=== PATIENT | female | born 1950 | race African-American/Black ===

== ENCOUNTER → 2021-08-27 | Outpatient (CLI) | payer MEDICARE ==
[~2021-08-27] MED LIST: ATORVASTATIN CA40 MG PO; FENOFIBRATE67 MG PO; LOSARTAN POTASS25 MG PO; METOPROLOL TART50 MG PO; NOVOLIN 70100 UNITS/ SQ
== END ==
LOC: MAMMO 09:35
PROVIDERS: ATTEND Internal Medicine
DX: Z12.31 Encounter for screening mammogram for malignant neoplasm of breast (principal)
CPT/HCPCS: 77067